=== PATIENT | female | born 1955 | race Caucasian/White ===

== ENCOUNTER 2018-02-17 10:42 | Outpatient (CLI) | payer OTHER ==
[2018-02-17 19:01] LABS: ADENOVIRUS F 40/41 NOT DETECTED (Not Detected); ASTROVIRUS NOT DETECTED (Not Detected); C. DIFFICILE (TOXIN A/B) POSITIVE (Not Detected); CRYPTOSPORIDIUM NOT DETECTED (Not Detected); CYCLOSPORA CAYETANENSIS NOT DETECTED (Not Detected); ENTAMOEBA HISTOLYTICA NOT DETECTED (Not Detected); GIARDIA LAMBLIA NOT DETECTED (Not Detected); ROTAVIRUS A NOT DETECTED (Not Detected); SAPOVIRUS NOT DETECTED (Not Detected); VIBRIO CHOLERAE NOT DETECTED (Not Detected)
== END 2018-02-17 10:44 ==
LOC: LAB 10:42
PROVIDERS: ATTEND Physician Assistant
DX: A04.72 Enterocolitis due to Clostridium difficile, not specified as recurrent (principal); K92.1 Melena
CPT/HCPCS: 82270; 87507